=== PATIENT | female | born 1970 | race Hispanic/Latino ===

== ENCOUNTER → 2019-10-06 | Day surgery (SDC) | payer OTHER ==
[~2019-10-06] MED LIST: BUPIVACAINE HCL 0.5% INJ 30 ML VIAL INJ ONE; CEFAZOLIN SOD 1 GM/NS 50ML 50 ML IV ONE; DEXAMETHASONE SOD PHOS INJ 4 MG/ML VIAL ONE; FENTANYL CITRATE/PF 100MCG/2 ML INJ ONE; GLYCOPYRROLATE INJ 0.2 MG/ML VIAL ONE; KETOROLAC TROMETHAMINE 30 MG/ML VIAL ONE; LIDOCAINE HCL 2% LOCAL INJ 5 ML SDV VIAL INJ ONE; MIDAZOLAM HCL 2 MG/2 ML VIAL ONE; ONDANSETRON HCL INJ 2MG/ML 2ML 2 MG/ML VIAL ONE; PROPOFOL IV EMULSION 10 MG/ML 20 ML VIAL ONE; SEVOFLURANE INHAL SOLN 250 ML PEN BTL ONE; ULTRAM 50MG50 MG PO
[2019-10-06 09:25] VITALS: BP 146/88
--- NOTE | 2019-10-06 13:28 | Operative Report ---
DATE OF PROCEDURE: 10/06/2019 SURGEON: Ryley Dyer MD [employer] INSTALLER: Gabriel Muhammad, certified PA. PREOPERATIVE DIAGNOSIS: Displaced right distal radius fracture. POSTOPERATIVE DIAGNOSIS: Displaced right distal radius fracture. PROCEDURE: Open reduction and internal fixation right distal radius. INDICATIONS: The patient is a 48-year-old lady, who sustained an unstable fracture of her right distal radius. She had a closed reduction at an outside institution. She presented and we discussed the options. She would like to proceed with an open reduction with internal fixation. The risks and benefits of the procedure were explained. All of her questions were answered. She stated she understood and wished to proceed. PROCEDURE IN DETAIL: The patient was brought to the operating room and placed under general anesthetic. Her right upper extremity was prepped and draped in a sterile manner. A preoperative time-out was performed. The extremity was exsanguinated and a proximal tourniquet was inflated to 250 mmHg. An incision was made over the right distal forearm along the radial aspect. We treated a little bit to the radial side due to a previous scar on the volar aspect of her wrist. The flexor carpi radialis was identified. The approach was continued through the floor of the flexor tendon sheath. Care was taken to avoid injury to the palmar cutaneous branch of the median nerve. Self-retaining retractors were placed. The distal radius was carefully exposed. The fracture was further reduced. A [employer] precontoured distal radius plate was then placed into the bone. A C-arm image intensifier was used to confirm satisfactory positioning of the hardware. The hardware was fixed with a combination of compression and locking screws. Intraoperative x-rays confirmed a near anatomic reduction with sabianist of the radial length and inclination. There was significant dorsal comminution. The wound was thoroughly irrigated. The wound was closed with subcuticular Vicryl and nylon stitches. A sterile bandage and sugar-tong splint were applied. She was extubated and transported to the recovery room in stable condition. There was no blood loss and all needle and sponge counts were correct. Ryley Dyer MD DR/SARAY /[id number]
== END | disposition home or self-care (01) ==
LOC: OR 06:34
PROVIDERS: ATTEND Specialist
DX: S52.501A Unspecified fracture of the lower end of right radius, initial encounter for closed fracture (principal); S52.511A Displaced fracture of right radial styloid process, initial encounter for closed fracture; W11.XXXA Fall on and from ladder, initial encounter; Y93.89 Activity, other specified; Y92.89 Other specified places as the place of occurrence of the external cause; Y99.8 Other external cause status; Z01.812 Encounter for preprocedural laboratory examination; Z11.59 Encounter for screening for other viral diseases
CPT/HCPCS: 25607; C1713 ×6; J0690; J1100; J1885; J2001; J2250; J2405; J2704; J3010; U0002; 76000

== ENCOUNTER 2020-01-20 09:15 | Outpatient (RCR) | payer OTHER ==
[~2020-01-20 09:15] MED LIST changes: -BUPIVACAINE HCL 0.5% INJ 30 ML VIAL INJ ONE; -CEFAZOLIN SOD 1 GM/NS 50ML 50 ML IV ONE; -DEXAMETHASONE SOD PHOS INJ 4 MG/ML VIAL ONE; -FENTANYL CITRATE/PF 100MCG/2 ML INJ ONE; -GLYCOPYRROLATE INJ 0.2 MG/ML VIAL ONE; -KETOROLAC TROMETHAMINE 30 MG/ML VIAL ONE; -LIDOCAINE HCL 2% LOCAL INJ 5 ML SDV VIAL INJ ONE; -MIDAZOLAM HCL 2 MG/2 ML VIAL ONE; -ONDANSETRON HCL INJ 2MG/ML 2ML 2 MG/ML VIAL ONE; -PROPOFOL IV EMULSION 10 MG/ML 20 ML VIAL ONE; -SEVOFLURANE INHAL SOLN 250 ML PEN BTL ONE
== END 2020-01-21 ==
LOC: OT 09:15
PROVIDERS: ATTEND Specialist
DX: S52.511A Displaced fracture of right radial styloid process, initial encounter for closed fracture (principal)

== ENCOUNTER 2020-02-20 10:00 | Outpatient (RCR) | payer OTHER | END 2020-02-21 | LOC: OT 10:00 | PROVIDERS: ATTEND Specialist | DX: S52.501D Unspecified fracture of the lower end of right radius, subsequent encounter for closed fracture with routine healing (principal); M25.531 Pain in right wrist; M25.631 Stiffness of right wrist, not elsewhere classified; R53.1 Weakness ==